=== PATIENT | female | born 1945 | race Caucasian/White ===

== ENCOUNTER 2018-06-06 18:44 | Emergency (ER) | payer MEDICARE ==
--- NOTE | 2018-06-06 19:56 | EDM.PDOC ---
ED HPI GENERAL MEDICAL PROBLEM - General Chief Complaint: Neuro Symptoms/Deficits Stated Complaint: ILLNESS Time Seen by Provider: 06/06/18 19:35 Source of Information: Reports: Patient, Family History Limitations: Reports: No Limitations - History of Present Illness INITIAL COMMENTS - FREE TEXT/NARRATIVE: 72-year-old female who yesterday had a 3 minute episode of dysarthria and decreased responsiveness, had another episode earlier today but since that time his had persistent left arm and left leg burning and paresthesias but no weakness. Onset: Unknown/Unsure (Symptoms have waxed and waned and it happened previously over the past several months) Duration: Minutes: (Symptoms yesterday lasted 3 minutes, today they are persistent) Associated Symptoms: Denies: Chest Pain, Cough, Loss of Appetite, Shortness of Breath Left Arm Pain Score (Numeric/FACES): 9 - Related Data Allergies Allergy/AdvReac Type Severity Reaction Status Date / Time No Known Allergies Allergy Verified 06/06/18 19:28 Home Meds: Home Meds Multivitamin with Minerals [Multiple Vitamin] 1 tab PO DAILY 08/04/13 [History] lamoTRIgine 25 mg PO BID 11/16/14 [History] Acetaminophen 650 mg PO Q4H PRN 02/03/18 [History] Lisinopril [Zestril] 40 mg PO BID 02/03/18 [History] PARoxetine [Paxil] 40 mg PO DAILY 02/03/18 [History] atorvaSTATin [Lipitor] 40 mg PO DAILY 02/03/18 [History] Apixaban [Eliquis] 5 mg PO BID 06/06/18 [History] Past Medical History HEENT History: Reports: Cataract, Impaired Vision Cardiovascular History: Reports: Afib, High Cholesterol, Hypertension, Pacemaker [employer] History: Reports: Neurological History: Reports: Seizure, TIA Other Neuro History: History of having 4 seizures in a 2 week period. September 2014. Psychiatric History: Reports: Depression Hematologic History: Reports: Anticoagulation Therapy Dermatologic History: Reports: Psoriasis - Infectious Disease History Infectious Disease History: Reports: Chicken Pox, Measles, Mumps - Past Surgical History HEENT Surgical History: Reports: Cataract Surgery Cardiovascular Surgical History: Reports: Pacer Social & Family History - Tobacco Use Smoking Status *Q: Never Smoker - Caffeine Use Caffeine Use: Reports: Coffee - Alcohol Use Days Per Week of Alcohol Use: 5 Number of Drinks Per Day: 1 Total Drinks Per Week: 5 - Recreational Drug Use Recreational Drug Use: No ED ROS GENERAL - Review of Systems Review Of Systems: See Below Constitutional: Denies: Fever, Chills HEENT: Denies: Vision Change Respiratory: Denies: Shortness of Breath, Cough Cardiovascular: Denies: Chest Pain GI/Abdominal: Denies: Abdominal Pain, Nausea, Vomiting Skin: Reports: No Symptoms Neurological: Reports: Paresthesia (Left arm and left leg) ED EXAM, NEURO - Physical Exam Exam: See Below Exam Limited By: No Limitations General Appearance: Alert, No Apparent Distress Eye Exam: Bilateral Eye: EOMI, PERRL Head Exam: Atraumatic Respiratory/Chest: No Respiratory Distress, Lungs Clear Cardiovascular: Regular Rate, Rhythm GI/Abdominal: Soft, Non-Tender Neurological: Alert, Normal Mood/Affect, CN II-XII Intact, No Motor/Sensory Deficits, Oriented x 3 Extremities: Normal Inspection Psychiatric: Normal Affect, Normal Mood EKG INTERPRETATION EKG Date: 06/06/18 EKG Interpretation Comments: Normal atrial paced sinus rhythm Course - Vital Signs Last Recorded V/S: Last Vital Signs Temp 97.4 F 06/06/18 19:33 Pulse 72 06/06/18 20:38 Resp 14 06/06/18 20:38 BP 159/76 H 06/06/18 20:38 Pulse Ox 96 06/06/18 20:38 - Re-Assessments/Exams Free Text/Narrative Re-Assessment/Exam: 06/06/18 21:24 Patient continued to be objectively normal, CT of the head was normal, EKG were reassuring. She wanted to be discharged home which I think is reasonable, this likely is a stress reaction or conversion reaction to her recent significant psychological stressors. She can return if worsening or develops other concerns. Departure - Departure Time of Disposition: 21:40 Disposition: Home, Self-Care 01 Condition: Good Clinical Impression: Paresthesias/numbness - Discharge Information Instructions: Paresthesia Referrals: Chip Vogel MD [Primary Care Provider] - Forms: ED Department Discharge Care Plan Goals: Continue your current medications, activity as tolerated and return anytime if worsening or you develop other concerns. Also consider rechecking in 2-3 days if not improving satisfactorily.
[2018-06-06 20:39] VITALS: BP 159/76
== END 2018-06-06 21:41 | disposition home or self-care (01) ==
LOC: JP.ED 18:44
DX: R20.2 Paresthesia of skin (principal); I10 Essential (primary) hypertension; E78.00 Pure hypercholesterolemia, unspecified; F32.9 Major depressive disorder, single episode, unspecified; I48.91 Unspecified atrial fibrillation; Z79.01 Long term (current) use of anticoagulants; Z79.899 Other long term (current) drug therapy; Z95.0 Presence of cardiac pacemaker
CPT/HCPCS: 70450; 99283; 99284-25